=== PATIENT | male | born 1985 | race Caucasian/White ===

== ENCOUNTER 2022-01-30 23:16 | Emergency (ER) | payer OTHER, MEDICAID ==
[2022-01-31 00:08] LABS: BLOOD UREA NITROGEN,BUN 20 mg/dL (7.0-18.0); CARBON DIOXIDE,CO2 29.3 mmol/L (21.0-32.0); CHLORIDE,CL 105 mmol/L (98-107); GLUCOSE RANDOM 83 mg/dL (74-106); POTASSIUM,K 4.3 mmol/L (3.5-5.1); SODIUM,NA 141 mmol/L (136-148)
[2022-01-31] MEDS ORDERED: Ketorolac 30 MG/ML SDV IM ONE (00:58)
[2022-01-31] MEDS ORDERED: Ketorolac 30 MG/ML SDV IVPUSH ONE (00:58)
[2022-02-02 13:07] LABS: C.TRACHOMATIS BY TMA Negative (Negative); N.GONORRHOEAE BY TMA Negative (Negative)
== END 2022-01-31 01:43 | disposition home or self-care (01) ==
LOC: MW.ED 23:16
DX: N50.812 Left testicular pain (principal)
CPT/HCPCS: 36415; 76870; 80053; 81003; 85025; 87491; 87591; 93976; 96372; 99284; J1885